=== PATIENT | female | born 1995 | race African-American/Black ===

== ENCOUNTER 2018-08-21 11:12 | Emergency (ER) | payer SELFPAY ==
[2018-08-21 11:38] VITALS: Wt 61.4 kg
[2018-08-21 12:44] LABS: BASOPHILS 0.3 % (0-2); EOSINOPHILS 1.1 % (0-7); HEMATOCRIT 34.6 % (36.0-48.0); HEMOGLOBIN 11.5 g/dL (12-16); IMMATURE GRANULOCYTES 0.3 % (0-5); MCH 27.2 pg (26.0-34.0); MCHC 33.2 g/dL (31.0-37.0); MCV 81.8 fL (80.0-100.0); MEAN PLATELET VOLUME 10.1 fL (7.4-10.4); MONOCYTES 10.1 % (2-11); NEUTROPHILS 73.2 % (40-80); PLATELET COUNT 244 10x3/uL (130-400); RBC 4.23 10x6/uL (4.00-5.40); WBC 7.3 10x3/uL (4.8-10.8)
[2018-08-21 12:52] LABS: APPEARANCE CLEAR (CLEAR); BILIRUBIN NEGATIVE (NEGATIVE); COLOR YELLOW (YELLOW); GLUCOSE NEGATIVE (NEGATIVE); KETONE NEGATIVE (NEGATIVE); NITRITE NEGATIVE (NEGATIVE); PROTEIN NEGATIVE (NEGATIVE); UROBILINOGEN NORMAL (NORMAL)
[2018-08-21 12:55] LABS: BACTERIA NONE SEEN /hpf (NONE SEEN); EPITHELIAL CELLS 0-5 /hpf (0-5); WHITE CELLS - URINE 0-5 /hpf (0-5)
[2018-08-21 13:15] LABS: ALBUMIN 3.8 g/dL (3.4-5.0); ALKALINE PHOSPHATASE 52 U/L (46-116); ALT (SGPT) 17 U/L (10-68); AMYLASE - SERUM 91 U/L (25-115); BILIRUBIN - TOTAL 0.25 mg/dL (0.2-1.3); CALC OSMOLALITY 279 mosm/kg (275-300); CARBON DIOXIDE 27.4 mmol/L (21.0-32.0); CHLORIDE - SERUM 105 mmol/L (98-107); CREATININE - SERUM 0.8 mg/dL (0.6-1.3); GLUCOSE 101 mg/dL (74-106); LIPASE 141 U/L (73-393); POTASSIUM - SERUM 3.8 mmol/L (3.5-5.1); PROTEIN - SERUM 7.2 g/dL (6.4-8.2); SODIUM 141 mmol/L (136-145); UREA NITROGEN 11 mg/dL (7-18); eGFR NON AFRICAN AMERICAN > 90 mL/min (90-120)
[2018-08-21 14:45] LABS: HCG URINE NEGATIVE (NEGATIVE)
[2018-08-21] MEDS ORDERED: ACETAMINOPHEN500 M1 PO (14:45)
[2018-08-21] MEDS ORDERED: CYCLOBENZAPRINE10 MG PO (14:45)
[2018-08-21] MEDS ORDERED: IBUPROFEN800 MG PO (14:45)
[2018-08-21 15:21] VITALS: BP 120/54
== END 2018-08-21 15:22 | disposition home or self-care (01) ==
LOC: D.ER 11:12
PROVIDERS: Family Medicine
DX: R10.31 Right lower quadrant pain (principal)

== ENCOUNTER 2020-07-17 18:36 | Emergency (ER) | payer BC ==
[~2020-07-17] VITALS: Ht 167.6 cm; Wt 63.6 kg
[~2020-07-17 18:36] MED LIST: ACETAMINOPHEN500 M1 PO; CYCLOBENZAPRINE10 MG PO; IBUPROFEN800 MG PO
[2020-07-17 18:42] VITALS: BP 114/62; Ht 167.6 cm; Wt 63.6 kg
== END 2020-07-17 19:15 | disposition home or self-care (01) ==
LOC: D.ER 18:36
DX: S66.113A Strain of flexor muscle, fascia and tendon of left middle finger at wrist and hand level, initial encounter (principal); X50.0XXA Overexertion from strenuous movement or load, initial encounter; Y93.9 Activity, unspecified; Y92.9 Unspecified place or not applicable